=== PATIENT | female | born 1950 | race Caucasian/White ===

== ENCOUNTER 2022-04-14 08:24 | Outpatient (CLI) | payer MEDICARE, SELFPAY ==
[2022-04-14 08:37] VITALS: BP 128/70; PULSE 68; RESP 20; TEMP 36.6; O2SAT 96
--- NOTE | 2022-04-14 09:16 | PDOC.PAIN_ITS ---
Date of service: 04/14/22 Time of Service: 09:17 Pain Clinic Procedure Note Procedure Note Procedure Note: INTRA-ARTICULAR SI JOINT INJECTION WADE ANDREA has been referred to the [facility] for intra- articular SI joint injection. COMMENTS: She was previously evaluated in the office. Pre-procedure pain VAS was 7/10. Dx: Sacroiliac joint dysfunction Patient was interviewed and the medical record reviewed. There were no medical, pharmacologic, radiographic or other structural contraindications to attempting fluoroscopically guided intra-articular SI joint injection. Risks and expected side effects as well as potential benefit of the procedure were reviewed and voiced concerns addressed. The printed consent form was signed and witnessed. Standard time-out procedure was performed. Patient was placed in the prone position on the fluoroscopy table and automated blood pressure cuff and pulse oximeter applied. The skin entry point for approaching the right SI joint was identified under the most advantageous fluoroscopic view and marked. Following thorough Chlorhexadine preparation of the skin and draping and 1% lidocaine infiltration of the skin entry point and subcutaneous tissues, a 22 gauge spinal needle was placed under fluoroscopic guidance into the right SI joint was identified under the most advantageous fluoroscopic view and marked. Intra-articular placement was confirmed by a clear arthrogram resulting from the injection of 0.25ml Omnipaque 240, 1ml 1% lidocaine, and 80mg Depomedrol were injected intra-articularily with an initial reproduction of a significant component of the usual pain. Vital signs were stable throughout the procedure and were as recorded in the docflowsheet by the nursing staff. If given, dosages of intravenous drugs for anxiolysis and analgesia were documented in MAR. Follow up plans and appointments were discussed with the patient. Post procedure instruction was given as documented in nursing documentation and having met discharge criteria, and was discharged from the [facility]. COMMENTS: Post-procedure pain VAS = 1/10. Anselmo Garner DO, MPH [facility]-Pain Management [facility] CC:
[2022-04-14 09:19] VITALS: BP 137/93; PULSE 92; RESP 17; O2SAT 97
[2022-04-14] MEDS: methylPREDNISolone ACETATE 80 MG/ML VIAL IJ (09:19)
[2022-04-14] MEDS: Omnipaque 240 MG/ML 50 ML BTL IJ (09:19)
--- NOTE | 2022-04-14 09:23 | DI.RAD_ITS ---
Exam(s) XR PAIN CLINIC SACRIOILIAC 2V EXAM: XR PAIN CLINIC SACRIOILIAC 2V CLINICAL HISTORY: DX: sacroiliac dysfunction TECHNIQUE: 2D and realtime digital imaging was performed. COMPARISON: No exams were available for comparison FINDINGS: C-arm fluoroscopy was utilized by Dr. Garner during SI joint injection. Hard copy shows right SI joint injection. IMPRESSION: RADIATION DOSE DELIVERED: Ka,r=8.33 mGy
== END 2022-04-14 08:25 | disposition home or self-care (01) ==
PROVIDERS: Visit Provider Preventive Medicine Occupational Medicine
DX: M54.50 Low back pain, unspecified (principal); M53.3 Sacrococcygeal disorders, not elsewhere classified
CPT/HCPCS: G0260; 27096; 72200; J1040; Q9967

== ENCOUNTER 2023-02-15 08:41 | Outpatient (CLI) | payer MEDICARE, SELFPAY ==
[2023-02-15 08:54] VITALS: BP 123/74; PULSE 97; RESP 20; TEMP 36.2; O2SAT 95
--- NOTE | 2023-02-15 09:29 | PDOC.PAIN ---
Date of service: 02/15/23 Time of Service: 09:29 Pain Managment Procedure Note Procedure Note Procedure Note: PROCEDURE NOTE Bilateral Lumbar Medial Branch Blocks Date of Service: February 15, 2023 Patient: WADE ANDREA Provider: Tj Garner DO, MPH WADE Santana ANDREA has been referred to the Pain Management Center for lumbar medial branch blocks. 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 She was previously evaluated in the clinic and this procedure was recommended. EPGGY was interviewed and the medical records were reviewed. There were no medical, pharmacologic, radiographic or other structural contraindications to attempting fluoroscopically guided local anesthetic lumbar medial branch blocks. Risks and potential side effects were discussed. I also discussed the potential benefit(s) of the procedure with WADE, and voiced concerns were addressed. After WADE was completely informed about the procedure, the printed consent form was signed. A standard time-out procedure was performed. WADE was placed in the prone position on the fluoroscopy table. Automated blood pressure cuff and pulse oximeter were applied. The skin entry points for approaching the anatomic target points of the segmental medial branches of bilateral L1, L2, and L3 were identified with fluoroscopy and marked. The skin at the target site area was thoroughly prepared with Chlorhexadine. The skin was then draped. Next, a 25 gauge 3.5 spinal needle was placed under fluoroscopic guidance down on to the target point (the articular pillar) for each respective segmental medial branch. Position was confirmed in A/P and lateral views. Aspiration revealed no blood or clear fluid. Next, 0.25ml of omnipaque 240 was injected at each level. No contrast following a vascular or neural pattern was visualized under continuous fluoroscopy. Next, 0.25 ml of preservative-free 0.5% bupivicaine was injected at each level. There was no unusual discomfort expressed by WADE. The needles were withdrawn without difficulty. (49 mls of Omnipaque was wasted) WADE was observed and was without hemodynamic, neurologic, or allergic reactions.? Fluoroscopic images were digitally archived. Provacative testing using the Modified Landrum's facet loading test- Left side Right Side Directly before the block VAS (0-10) = 5/10 VAS (0-10) = 5/10 Five minutes after the block VAS (0-10) = 0/10 VAS (0-10) = 0/10 Percentage relief obtained with this diagnostic block 100% 100% Any improved physical functioning directly after the blocks? Able to move with ease. Follow up plans and appointments were discussed with WADE. WADE was instructed to keep careful note of how the usual pain was modified by these injections. Specifically, to keep a pain diary for the next 4 hours using a numeric pain scale of 0-10 and report these results. Post procedure instruction was given as documented in the nursing documentation and having met discharge criteria, the patient was discharged from the [facility]. Based on the medial branches blocked today, if they patient has adequate relief and we are able to proceed to radiofrequency ablation, the treatment should result in the denervation of the bilateral L2-L3 and L3-L4 facet joints. We would expect to denervate a total of 4 facets during the radiofrequency ablation. COMMENTS: No apparent complications. Post-procedure pain: VAS= 0/10 WADE will call back with 0-4 hour post-procedure pain scores. I personally performed the entire procedure. TJ GARNER DO, MPH [employer]-subspecialty board certification in Pain Medicine [facility]-[place] for Pain Management
--- NOTE | 2023-02-15 09:32 | DI.RAD_ITS ---
Exam(s) XR PAIN CLINIC LUMBAR SP 2V EXAM: XR PAIN CLINIC LUMBAR SP 2V CLINICAL HISTORY: Dx: Lumbar Spondylosis TECHNIQUE: 2D and realtime digital imaging was performed. CONTRAST MATERIAL: Refer to procedure report. COMPARISON: No exams were available for comparison FINDINGS: Fluoroscopy was provided for Dr. Garner during the performance of a pain management therapy. Please r efer to the procedure report for complete details. Ka,r=22.6 mGy IMPRESSION:
[2023-02-15] MEDS: Omnipaque 240 MG/ML 50 ML BTL IJ (09:39)
[2023-02-15] MEDS: Bupivacaine 0.5% Pres-Free 10 ML VIAL IJ (09:39)
[2023-02-15 09:42] VITALS: BP 127/80; PULSE 94; RESP 22; O2SAT 95
== END 2023-02-15 08:42 | disposition home or self-care (01) ==
LOC: PC 08:41
PROVIDERS: Visit Provider Preventive Medicine Occupational Medicine
DX: M54.50 Low back pain, unspecified (principal); M47.816 Spondylosis without myelopathy or radiculopathy, lumbar region
CPT/HCPCS: 64493; 64494; 72100; Q9967

== ENCOUNTER 2023-05-24 08:07 | Outpatient (CLI) | payer MEDICARE, SELFPAY ==
--- NOTE | 2023-05-24 06:00 | DI.RAD_ITS ---
Exam(s) XR PAIN CLINIC LUMBAR SP 2V EXAM: XR PAIN CLINIC LUMBAR SP 2V CLINICAL HISTORY: Dx: Lumbar Spondylosis. TECHNIQUE: Fluoroscopy was provided for the referring physician for guidance with performing pain cl inic injection procedure. COMPARISON: No exams were available for comparison FINDINGS: Please see procedure note for details. Fluoro time: 71.4 seconds RADIATION DOSE DELIVERED: Maureenr=30.67 mGy
[2023-05-24 08:17] VITALS: BP 119/83; PULSE 96; RESP 20; TEMP 36.6; O2SAT 99
[2023-05-24 09:17] VITALS: BP 127/88; PULSE 89; RESP 22; O2SAT 95
[2023-05-24] MEDS: Bupivacaine 0.5% Pres-Free 10 ML VIAL IJ (09:18)
[2023-05-24] MEDS: Omnipaque 240 MG/ML 50 ML BTL IJ (09:19)
--- NOTE | 2023-05-24 09:20 | PDOC.PAIN_ITS ---
Date of service: 05/24/23 Time of Service: 09:21 Pain Managment Procedure Note Procedure Note Procedure Note: PROCEDURE NOTE Bilateral Lumbar Medial Branch Blocks #2 Date of Service: May 24, 2023 Patient: WADE ANDREA Provider: Tj Garner DO, MPH WADEJOE ANDREA has been referred to the [facility] Management Center for lumbar medial branch blocks. 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 There were no medical, pharmacologic, radiographic or other structural contraindications to attempting fluoroscopically guided local anesthetic lumbar medial branch blocks. Risks and potential side effects were discussed. I also discussed the potential benefit(s) of the procedure with WADE, and voiced concerns were addressed. After WADE was completely informed about the procedure, the printed consent form was signed. A standard time-out procedure was performed. WADE was placed in the prone position on the fluoroscopy table. Automated blood pressure cuff and pulse oximeter were applied. The skin entry points for approaching the anatomic target points of the segmental medial branches of bilateral L1, L2, and L3 were identified with fluoroscopy and marked. The skin at the target site area was thoroughly prepared with Chlorhexadine. The skin was then draped. Next, a 25 gauge 3.5 spinal needle was placed under fluoroscopic guidance down on to the target point (the articular pillar) for each respective segmental medial branch. Position was confirmed in A/P and lateral views. Aspiration revealed no blood or clear fluid. Next, 0.25ml of omnipaque 240 was injected at each level. No contrast following a vascular or neural pattern was visualized under continuous fluoroscopy. Next, 0.25 ml of preservative-free 0.5% bupivicaine was injected at each level. There was no unusual discomfort expressed by WADE. The needles were withdrawn without difficulty. (49 mls of Omnipaque was wasted) WADE was observed and was without hemodynamic, neurologic, or allergic reactions.? Fluoroscopic images were digitally archived. Provacative testing using the Modified Landrum's facet loading test- Left side Right Side Directly before the block VAS (0-10) = 7/10 VAS (0-10) = 7/10 Five minutes after the block VAS (0-10) = 0/10 VAS (0-10) = 0/10 Percentage relief obtained with this diagnostic block 100% 100% Any improved physical functioning directly after the blocks? 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 Follow up plans and appointments were discussed with WADE. WADE was instr ucted to keep careful note of how the usual pain was modified by these injections. Specifically, to keep a pain diary for the next 4 hours using a numeric pain scale of 0-10 and report these results. Post procedure instruction was given as documented in the nursing documentation and having met discharge criteria, the patient was discharged from the [facility]. Based on the medial branches blocked today, if they patient has adequate relief and we are able to proceed to radiofrequency ablation, the treatment should result in the denervation of the bilateral L2-L3 and L3-L4 facet joints. We would expect to denervate a total of 4 facets during the radiofrequency ablation. COMMENTS: No apparent complications. Post-procedure pain: VAS= 0/10 WADE will call back with 0-4 hour post-procedure pain scores. I personally performed the entire procedure. TJ GARNER DO, MPH [employer]-subspecialty board certification in Pain Medicine [facility]-[place] for Pain Management
== END 2023-05-24 08:08 | disposition home or self-care (01) ==
LOC: PC 08:08
PROVIDERS: PCP Family Medicine; Visit Provider Preventive Medicine Occupational Medicine
DX: M54.50 Low back pain, unspecified (principal); M47.816 Spondylosis without myelopathy or radiculopathy, lumbar region
CPT/HCPCS: 00123; 64493; 64494; 72100; Q9967

== ENCOUNTER 2023-10-26 11:18 | Outpatient (CLI) | payer MEDICARE, SELFPAY ==
[2023-10-26 11:31] VITALS: BP 128/77; PULSE 86; RESP 20; TEMP 36.7; O2SAT 97
[2023-10-26] MEDS: Midazolam 2 MG/2 ML VIAL IVP (12:15)
[2023-10-26] MEDS: fentaNYL 100 MCG/2 ML VIAL IVP (12:15)
[2023-10-26] MEDS: Lactated Ringers 500 ML 80 ML IV ×2 (12:30→13:01)
--- NOTE | 2023-10-26 12:51 | DI.RAD_ITS ---
Exam(s) XR PAIN CLINIC LUMBAR SP 2V EXAM: XR PAIN CLINIC LUMBAR SP 2V CLINICAL HISTORY: DX: Lumbar spondylosis TECHNIQUE: 2D and realtime digital imaging was performed. Radiologist not present. CONTRAST MATERIAL: None. COMPARISON: No exams were available for comparison FINDINGS: Fluoroscopy was provided for pain management therapy. Please refer to procedure report or details. Radiation Exposure Index: Ka,r=3.13 mGy IMPRESSION: As above. RADIATION DOSE DELIVERED:
[2023-10-26] MEDS: Bupivacaine 0.5% Pres-Free 10 ML VIAL IJ (13:02)
[2023-10-26] MEDS: methylPREDNISolone ACETATE 40 MG/ML VIAL IJ (13:03)
[2023-10-26] MEDS: Lidocaine 2% Multi-Dose 20 ML VIAL IJ (13:03)
[2023-10-26] MEDS: Nerve Block Tray 1 EACH MC (13:04)
[2023-10-26 13:14] VITALS: BP 130/84; PULSE 92; RESP 16; O2SAT 92
--- NOTE | 2023-10-30 06:37 | PDOC.PAIN ---
Date of service: 10/26/23 Time of Service: 13:00 Pain Managment Procedure Note Procedure Note Procedure Note: PROCEDURE NOTE BILATERAL LUMBAR RADIOFREQUENCY ABLATION Date of Service: October 26, 2023 Patient:WADE BARAKAT? Provider:? Anselmo Garner DO, MPH WADE ANDREA has been referred to the [facility] for Bilateral Lumbar Radiofrequency Ablation with the [employer] Machine.? Pre Operative Diagnosis: Lumbosacral Spondylosis without Myelopathy Post Operative Diagnosis: Same Pre procedure pain; VAS= 7/10 Comments: She did well with LMBBs. She does have a L4-S1 fusion. PROCEDURE: Radiofrequency Ablation of medial branches - bilateral L1-L3. WADE?was interviewed and the medical record was reviewed.? There were no medical, pharmacologic, radiographic or other structural contraindications to attempting fluoroscopically guided BILATERAL Lumbar Radiofrequency Ablation.?Risks and expected side effects as well as potential benefit of the procedure were reviewed with WADE, and the patient's voiced concerns were addressed.? The printed consent form was signed.? Standard time-out procedure was performed. WADE was brought into the fluoroscopy suite and positioned into the prone position on the fluoroscopy table and allowed to adjust to a position of comfort. A grounding pad was placed on the left abdomen. The sterile field was prepared using chlorhexidine preparation of the skin and sterile draping. Local anesthesia superficial and deep was provided by local infiltration of 2% lidocaine. A 17g 100 mm radiofrequency introducer needle was placed to the planned anatomic targets guided with intermittent fluoroscopy with a perpendicular approach to terminally place at the junction of the superior articular process and the transverse process of the bilateral L2-L4. The stylets were removed and radiofrequency probes with a 4mm active tip were then inserted. Needle tip position of the probes was verified in the AP, oblique, and lateral views. At each site, the medial branch nerve was stimulated at 2 Hz to a maximum 1-2 volts determined to finalize safe needle and electrode placement. The patient was awake and responsive during this portion of the procedure. Each target was anesthetized with 1-2 mL of 2 % Lidocaine for anesthesia for lesioning and then each target was lesioned at 80 degrees Celsius for 2 minutes and 30 seconds. Tissue impedances were noted to be between 250 and 500 Ohms. 1/3 cc of Depomedrol (40 mg/cc) was injected at each segmental sensory nerve followed by 1 cc of 0.5% Bupivacaine. There was no unusual discomfort expressed by WADE. The needles were withdrawn without difficulty and bandages placed over the needle placement sites, the patient was observed and was without hemodynamic, neurologic, or allergic reactions. Fluoroscopic images were digitally archived. POST PROCEDURE EVALUATION: IMPRESSION: 1. Summary of procedure. Medication given is documented in the MAR. 2. Follow up plan: WADE to contact [facility] as needed.?This procedure may be repeated if the patient achieves at least 50% improvement in pain/function for at least 6 months. 3. Estimated Blood Loss: <5 mls 4. Fluoroscopy time: Documented in the EMR. Follow up plans and appointments were discussed with the WADE. Post procedure instruction was given as documented in nursing documentation and having met discharge criteria, WADE was discharged from the [facility]. COMMENTS: No apparent complications. Post-procedure pain: VAS= 0/10. I personally completed the entire procedure. ANSELMO GARNER DO, MPH [employer] - Subspecialty board certification in Pain Medicine [facility] [facility] Management
== END 2023-10-26 11:19 | disposition home or self-care (01) ==
LOC: PC 11:18
PROVIDERS: PCP Family Medicine; Visit Provider Preventive Medicine Occupational Medicine
DX: M54.50 Low back pain, unspecified (principal); M47.817 Spondylosis without myelopathy or radiculopathy, lumbosacral region
CPT/HCPCS: 64635; 64636; 72100; J0665; J1010; J2003; J2250; J3010